=== PATIENT | male | born 1960 | race Caucasian/White ===

== ENCOUNTER 2019-08-07 18:52 | Inpatient (IN) | payer MEDICAID ==
[~2019-08-07] VITALS: Ht 180.3 cm; Wt 84.1 kg
[2019-08-07 18:52] VITALS: BP_SYST 126
--- NOTE | 2019-08-07 19:48 | NUR ---
Placed in room 5 . Placed on media monitor, blood pressure machine and pulse oximeter. To gown for exam. Side rails up.
--- NOTE | 2019-08-07 19:49 | NUR ---
Blood cultures drawn and sent to lab.
--- NOTE | 2019-08-07 19:52 | NUR ---
Patient was BIB BLS c/o body aches, cough intermittently x 2 weeks, and coughing up blood since yesterday, stating "it's dark blood." Pt denies N/V, diarrhea. Per patient, "always short of breath." No other injuries/complaints per patient or noted.
--- NOTE | 2019-08-07 19:54 | NUR ---
ER Dr. Barraza at bedside examining patient.
[2019-08-07] MEDS ORDERED: IPRATROPIUM/ALBUTEROL SULFATE 3 ML AMPUL.NEB (DUONEB) INH ONE (20:15)
[2019-08-07 20:37] LABS: BASOPHILS # (AUTO) 0.1 K/uL (0.0-0.2); BASOPHILS % (AUTO) 1.1 % (0.0-2.0); EOSINOPHILS % (AUTO) 0.1 % (0.0-4.0); HEMATOCRIT 43.1 % (36-54); HEMOGLOBIN 13.9 g/dL (14.0-18.0); LYMPHOCYTES # (AUTO) 1.2 K/uL (1.0-5.5); LYMPHOCYTES % (AUTO) 17.4 % (20.5-51.5); MEAN CORPUSCULAR HEMOGLOBIN 26 pg (27-31); MEAN CORPUSCULAR HGB CONC 32 % (32-36); MEAN CORPUSCULAR VOLUME 80 fL (79.0-98.0); MONOCYTES # (AUTO) 0.7 K/uL (0.0-1.0); MONOCYTES % (AUTO) 10.7 % (1.7-9.3); NEUTROPHILS # (AUTO) 4.9 K/uL (1.8-7.7); NEUTROPHILS % (AUTO) 70.7 % (40.0-70.0); PLATELET COUNT (AUTO) 146 K/uL (130-430); RED BLOOD CELL COUNT(AUTO) 5.41 MIL/uL (4.2-6.2); RED CELL DISTRIBUTION WIDTH 18.7 % (9.0-15.0); WHITE BLOOD COUNT (AUTO) 6.9 K/uL (4.8-10.8)
--- NOTE | 2019-08-07 20:56 | NUR ---
Received call from Lab leon Campbell. Gave troponin 0.150. MD Madi khan.
[2019-08-07 21:00] LABS: ANION GAP 4 (5-15); CALCIUM 7.6 mg/dL (8.4-11.0); CHLORIDE 100 mmol/L (98-107); CREATININE 1.36 mg/dL (0.55-1.30); GLUCOSE 94 mg/dL (70-99); POTASSIUM 3.6 mmol/L (3.5-5.1); SODIUM SERUM 128 mmol/L (136-145); UREA NITROGEN, BLOOD 34 mg/dL (8-21)
[2019-08-07 21:04] LABS: ALANINE AMINOTRANSFERASE 37 U/L (12-78); ALBUMIN 2.7 g/dL (3.4-4.8); ASPARTATE AMINOTRANSFERASE 56 U/L (10-37); LIPASE 371 U/L (73-393); TOTAL BILIRUBIN 1.5 mg/dL (0.0-1.0)
[2019-08-07 21:15] LABS: GFR AFRICAN AMERICAN 69 mL/min (>90)
[2019-08-07 21:16] LABS: ALCOHOL, BLOOD < 3 mg/dL (<10)
[2019-08-07] MEDS ORDERED: ASPIRIN 81 MG TAB.CHEW PO ONE (21:30)
[2019-08-07] MEDS ORDERED: IOHEXOL 350 mgI/mL, 150 ML INFUS..BTL IV ONE (22:19)
[2019-08-07 22:27] LABS: BILIRUBIN,URINE NEGATIVE (NEGATIVE); BLOOD, URINE 3+ (NEGATIVE); CLARITY/URINE CLEAR (CLEAR); COLOR,URINE YELLOW (YELLOW); GLUCOSE,URINE NEGATIVE (NEGATIVE); KETONES,URINE NEGATIVE (NEGATIVE); LEUKOCYTE ESTERASE ,URINE TRACE (NEGATIVE); NITRITE, URINE NEGATIVE (NEGATIVE); PROTEIN URINE 2+ (NEGATIVE)
[2019-08-07 22:31] LABS: UROBILINOGEN,URINE >=8 (0.2-1.0)
[2019-08-07 22:36] LABS: BARBITURATE, URINE NEGATIVE (NEG <=200); BENZODIAZEPINE, URINE POSITIVE (NEG <=150); METHAMPHETAMINES SCREEN,URINE POSITIVE (NEG <=500)
[2019-08-07 22:37] LABS: CANNABINOID, URINE NEGATIVE (NEG <=50); COCAINE, URINE NEGATIVE (NEG <=150); OPIATE, URINE NEGATIVE (NEG <=100); PHENCYCLIDINE SCREEN,URINE NEGATIVE (NEG <=25); UR TRICYCLIC ANTIDEPRESSANTS NEGATIVE (NEG <=300); URINE AMPHETAMINE NEGATIVE (NEG <=500); URINE METHADONE NEGATIVE (NEG <=200); URINE OXYCODONE SCREEN NEGATIVE (NEG <=100); URINE PROPOXYPHENE SCREEN NEGATIVE (NEG <=300)
[2019-08-07 22:50] LABS: BACTERIA,URINE FEW /HPF (None Seen)
[2019-08-07] MEDS ORDERED: SILD25TA PO (23:20)
[2019-08-07] MEDS ORDERED: ASA81 PO (23:20)
[2019-08-07] MEDS ORDERED: FURO-149 PO (23:20)
[2019-08-07] MEDS ORDERED: LIP40 PO (23:20)
--- NOTE | 2019-08-07 23:20 | NUR ---
Medication reconciliation completed with information provided by patient. Any prior medication reconciliation on file was reviewed and corrected.
[2019-08-07] MEDS ORDERED: DOXYCYCLINE HYCLATE 100 MG CAPSULE PO ONE (23:30)
[2019-08-08] VITALS (22 sets, daily range): BP systolic 94–129
[2019-08-08] MEDS ORDERED: MORPHINE 4 MG/ML INJ. SYRINGE IVP PRN
[2019-08-08] MEDS ORDERED: ACETAMINOPHEN 325 MG TABLET PO PRN
--- NOTE | 2019-08-08 00:51 | NUR ---
Note iman in EDM - 08/08/19 at 0123 by [email or web address] Patient will be admitted to care of Dr. Anne-Marie Ratliff. Admitted to ICU unit. Will go to room 6. Belongings list completed. Complete and up to date summary report printed. SBAR report to be given at bedside with opportunity for questions.
--- NOTE | 2019-08-08 00:51 | NUR ---
Patient will be admitted to care of Dr. Montesinos. Admitted to ICU unit. Will go to room 6. Belongings list completed. Complete and up to date summary report printed. SBAR report to be given at bedside with opportunity for questions.
--- NOTE | 2019-08-08 00:51 | NUR ---
Transfer to ICU via ACLS protocol. Licensed nurse present. IV present no signs or symptoms of infiltration.
--- NOTE | 2019-08-08 01:00 | NUR ---
ADMISSION ASSESSMENT Pt came from ER via gurney and was able to transfer from ER gurney to ICU bed 6 by sliding self. Pt connected to in room monitor. VSS with SR with bundle branch block seen on the monitor. Pt placed on 2L O2 via NC, tolerating well with O2 sats @ 96%. 18g IV noted to pt's RFA. No signs of acute distress or discomfort noted. Bed is locked and in lowest position, call light within reach, will cont to monitor pt.
[2019-08-08] MEDS: PIPERACILLIN/TAZO 3.375/DEX-IS 50 ML IV SCH ×4 (01:25→17:04)
[2019-08-08] MEDS: AZITHROMYCIN 500 MG in NS 250 ML IV SCH (01:25)
[2019-08-08] MEDS: OSELTAMIVIR PHOSPHATE 75 MG CAPSULE PO SCH ×2 (01:28→21:00)
[2019-08-08] MEDS ORDERED: PIPERACILLIN/TAZOBACTAM 3.375 GM/VIAL (ZOSYN) IV ONE (01:29)
[2019-08-08] MEDS ORDERED: AZITHROMYCIN 500 MG/VIAL (ZITHROMAX) IV ONE (01:30)
--- NOTE | 2019-08-08 01:30 | NUR ---
DR MCCORMICK NOTIFIED OF CONSULT.AND AWARE OF THE TROPONIN RESULTS.WILL SEE PT IN AM
[2019-08-08] MEDS ORDERED: OSELTAMIVIR PHOSPHATE 75 MG CAPSULE ONE (01:43)
[2019-08-08] MEDS ORDERED: FLU VACC QS2019-20 36MOS UP/PF 60 MCG/0.5 ML SYRINGE I.M. PRN (02:00)
[2019-08-08] MEDS ORDERED: guaiFENesin 200 MG/CODEINE 20 MG/ 10 ML UDC PO PRN (02:00)
--- NOTE | 2019-08-08 03:50 | NUR ---
Pt had an episode of moderate black tarry, liquid stool at this time. Pt cleaned and cesar-care performed. Pt tolerated cleaning well. Will make MD aware in AM. Will cont to monitor pt.
--- NOTE | 2019-08-08 04:30 | NUR ---
DR FLETCHER EXCHANGE NOTIFIED OF CONSULT IN AM.TALKED TO LYLE
--- NOTE | 2019-08-08 05:00 | NUR ---
Pt in bed with eyes closed resting comfortably. No signs of acute distress or discomfort noted. Bed is locked and in lowest position, call light within reach, will cont to monitor.
[2019-08-08 06:03] LABS: BASOPHILS # (AUTO) 0.2 K/uL (0.0-0.2); BASOPHILS % (AUTO) 3.7 % (0.0-2.0); EOSINOPHILS % (AUTO) 0.3 % (0.0-4.0); HEMATOCRIT 38.9 % (36-54); HEMOGLOBIN 12.5 g/dL (14.0-18.0); LYMPHOCYTES # (AUTO) 0.8 K/uL (1.0-5.5); LYMPHOCYTES % (AUTO) 13.3 % (20.5-51.5); MEAN CORPUSCULAR HEMOGLOBIN 26 pg (27-31); MEAN CORPUSCULAR HGB CONC 32 % (32-36); MEAN CORPUSCULAR VOLUME 80 fL (79.0-98.0); MONOCYTES # (AUTO) 0.6 K/uL (0.0-1.0); NEUTROPHILS # (AUTO) 4.2 K/uL (1.8-7.7); NEUTROPHILS % (AUTO) 71.7 % (40.0-70.0); PLATELET COUNT (AUTO) 132 K/uL (130-430); RED BLOOD CELL COUNT(AUTO) 4.87 MIL/uL (4.2-6.2); RED CELL DISTRIBUTION WIDTH 19.5 % (9.0-15.0); WHITE BLOOD COUNT (AUTO) 5.8 K/uL (4.8-10.8)
[2019-08-08 06:20] LABS: ALBUMIN 2.3 g/dL (3.4-4.8); CALCIUM 7.4 mg/dL (8.4-11.0); CREATININE 1.23 mg/dL (0.55-1.30); POTASSIUM 3.9 mmol/L (3.5-5.1); TOTAL BILIRUBIN 1.2 mg/dL (0.0-1.0)
--- NOTE | 2019-08-08 07:23 | NUR ---
ENDORSEMENT Report given to oncoming dayshift RN using SBAR format and pt care was endorsed. No signs of acute distress or discomfort noted.
[2019-08-08] MEDS ORDERED: OCTREOTIDE ACETATE 500 MCG in NS 247.5 ML IV SCH (08:30)
[2019-08-08] MEDS ORDERED: OCTREOTIDE ACETATE 50 MCG in NS 50 ML IV ONE (08:30)
[2019-08-08] MEDS ORDERED: PANTOPRAZOLE SODIUM 40 MG/VIAL (PROTONIX) IVP SCH (09:00)
[2019-08-08 09:34] LABS: INR 1.2 (0.80-1.20); PROTHROMBIN TIME 12.3 SECS (9.5-12.5)
[2019-08-08] MEDS: ONDANSETRON HCL 4 MG/2 ML VIAL IVP PRN ×2 (10:05→14:08)
[2019-08-08] MEDS: PANTOPRAZOLE SODIUM 40 MG in NS 50 ML IV SCH ×4 (10:21→23:31)
--- NOTE | 2019-08-08 10:23 | NUR ---
Nutrition Update Jim Scale 18 noted. Pt admitted for NSTEMI and pneumonitis. Diet: clear liquid and NPO (2 active, separate diet orders) BMI: 25.8 kg/m2 RD to follow per nutrition care standards.
--- NOTE | 2019-08-08 10:25 | NUR ---
Paged Dr. Patrick regarding pt condition. Spoke with exchange.
--- NOTE | 2019-08-08 10:58 | NUR ---
Paged Dr. Montesinos for orders. Spoke with exchange.
[2019-08-08] MEDS: OCTREOTIDE ACETATE 500 MCG in NS 247.5 ML IV SCH ×2 (10:59→20:44)
--- NOTE | 2019-08-08 12:35 | NUR ---
Discharge Plan/ICU Assessment done. TELECOM ANALYST met with patient at bedside. Patient was experiencing pain and thirst but agreed to the interview. He is alert and oriented. He lives at home with his roommate, Aneudy Mckenna [phone]. Patient agreed to have Aneudy added as the person to notify on the face sheet. He cannot remember Anisha's phone number and agreed to have TELECOM ANALYST call Aneudy for the number. Called and left a voicemail message. Patient stated he has no family but has friends who would assist him if needed. He drives (car is in the hospital parking lot). Stated he is independent with ADLs but gets sob and uses his O2 "fairly often" at home. He has never been to a SNF nor had home health. Patient plans to return home with no discharge planning needs upon discharge. Patient also stated he is fine and has no C.O.D. Audit Clerk needs. Provided patient my card. C.O.D. Audit Clerk/Case Management/Cold Roll Packer Sheet Iron will be available if needed.
--- NOTE | 2019-08-08 13:23 | NUR ---
SPOKE TO DR SINGLETON OF GASTOENTERLOGY. INFORMED HIM OF BLACKISH VOMIT AND BLACK TO BURGANDY STOOL. HE ALSO GAVE ME ORDERS. SEE ORDERS. OF COURSE I CLEANED THE PT.
[2019-08-08] MEDS ORDERED: METOCLOPRAMIDE HCL 10 MG/2 ML VIAL IVP ONE (13:30)
--- NOTE | 2019-08-08 14:00 | NUR ---
DR FLETCHER HERE TO SEE THE PT. SHE WROTE ORDERS-MEDS. SEE EMAR. THE PT IS SLEEPING FOR THE MOST PART. I DID GIVE HIM THADDEUS AND CAMERON.
[2019-08-08] MEDS: D5/0.45 NS 1,000 ML IV SCH ×2 (14:19→23:30)
[2019-08-08 14:21] LABS: BASOPHILS % (AUTO) 0.7 % (0.0-2.0); EOSINOPHILS % (AUTO) 0.2 % (0.0-4.0); HEMATOCRIT 37.8 % (36-54); LYMPHOCYTES # (AUTO) 1.4 K/uL (1.0-5.5); LYMPHOCYTES % (AUTO) 20.6 % (20.5-51.5); MEAN CORPUSCULAR HEMOGLOBIN 25 pg (27-31); MEAN CORPUSCULAR HGB CONC 32 % (32-36); MEAN CORPUSCULAR VOLUME 80 fL (79.0-98.0); MONOCYTES # (AUTO) 0.6 K/uL (0.0-1.0); MONOCYTES % (AUTO) 8.3 % (1.7-9.3); NEUTROPHILS # (AUTO) 4.7 K/uL (1.8-7.7); NEUTROPHILS % (AUTO) 70.2 % (40.0-70.0); PLATELET COUNT (AUTO) 136 K/uL (130-430); RED BLOOD CELL COUNT(AUTO) 4.71 MIL/uL (4.2-6.2); RED CELL DISTRIBUTION WIDTH 19.2 % (9.0-15.0); WHITE BLOOD COUNT (AUTO) 6.7 K/uL (4.8-10.8)
[2019-08-08] MEDS ORDERED: IPRATROPIUM BROM 0.5 MG/2.5 ML VIAL.NEB (ATROVENT) INH PRN (15:30)
[2019-08-08] MEDS ORDERED: ALBUTEROL SULFATE 0.083% 2.5 MG/3 ML VIAL.NEB INH PRN ×2 (15:30)
[2019-08-08] MEDS ORDERED: methylPREDNISolone SOD SUCC/PF 62.5 MG/ML VIAL IVP ONE (15:30)
--- NOTE | 2019-08-08 18:00 | NUR ---
THE PT DID HAVE THREE BURGANDY STOOLS. HE IS SCHEDULED FOR AN EGD TOMMORROW. SANDOSTATIN AND PROTONIX A RUNNING WELL IVF. THE PT IS TRY TO SLEEP THROUGH. HE DOES HOWEVER AWAKEN FOR URINATION IN THE URINAL.
--- NOTE | 2019-08-08 19:55 | NUR ---
Initial PM note Received patient after report from electric motor and generator assembler. Easy to arouse but reporting feeling tired and "I just want to go to sleep; I haven't slept for three days". Denies pain or discomfort at this time and no signs of hemoptysis. IV infusing as per MD orders and IV drips Sandostatin and Protonix infusing as per orders; no signs of infiltration noted at this time. Low O2 sats noted 87%, encouraged to take deep breaths amd O2 was increased to 5 L/min via nasal canula. Patient was noted to be mouth breather when sleeping. will continue to monitor O2 sats.
[2019-08-08 20:24] LABS: BASOPHILS # (AUTO) 0.1 K/uL (0.0-0.2); BASOPHILS % (AUTO) 0.7 % (0.0-2.0); EOSINOPHILS % (AUTO) 0.1 % (0.0-4.0); HEMATOCRIT 38.3 % (36-54); HEMOGLOBIN 12.2 g/dL (14.0-18.0); LYMPHOCYTES # (AUTO) 0.5 K/uL (1.0-5.5); LYMPHOCYTES % (AUTO) 5.4 % (20.5-51.5); MEAN CORPUSCULAR HEMOGLOBIN 25 pg (27-31); MEAN CORPUSCULAR HGB CONC 32 % (32-36); MEAN CORPUSCULAR VOLUME 80 fL (79.0-98.0); MONOCYTES # (AUTO) 0.2 K/uL (0.0-1.0); MONOCYTES % (AUTO) 2.2 % (1.7-9.3); NEUTROPHILS # (AUTO) 7.9 K/uL (1.8-7.7); NEUTROPHILS % (AUTO) 91.6 % (40.0-70.0); PLATELET COUNT (AUTO) 146 K/uL (130-430); RED BLOOD CELL COUNT(AUTO) 4.79 MIL/uL (4.2-6.2); WHITE BLOOD COUNT (AUTO) 8.6 K/uL (4.8-10.8)
[2019-08-08] MEDS: ALBUTEROL SULFATE 0.083% 2.5 MG/3 ML VIAL.NEB INH SCH (20:31)
[2019-08-08] MEDS: IPRATROPIUM BROM 0.5 MG/2.5 ML VIAL.NEB (ATROVENT) INH SCH (20:32)
[2019-08-08] MEDS ORDERED: methylPREDNISolone SOD SUCC 40 MG/ML VIAL ONE (20:50)
[2019-08-08] MEDS: SILDENAFIL CITRATE 20 MG TABLET PO SCH (21:00)
--- NOTE | 2019-08-08 21:10 | NUR ---
spoke to patient sister Ivette Kelly after patient consented to share information. information provided as requested.
[2019-08-08] MEDS: methylPREDNISolone SOD SUCC/PF 62.5 MG/ML VIAL IVP SCH (23:43)
[2019-08-09] VITALS (18 sets, daily range): BP systolic 99–134
[2019-08-09] MEDS: PIPERACILLIN/TAZO 3.375/DEX-IS 50 ML IV SCH ×5 (00:17→23:15)
[2019-08-09] MEDS: ALBUTEROL SULFATE 0.083% 2.5 MG/3 ML VIAL.NEB INH SCH ×4 (01:00→19:00)
[2019-08-09] MEDS: IPRATROPIUM BROM 0.5 MG/2.5 ML VIAL.NEB (ATROVENT) INH SCH ×4 (01:00→19:00)
[2019-08-09] MEDS: AZITHROMYCIN 500 MG in NS 250 ML IV SCH ×2 (01:31→23:15)
[2019-08-09] MEDS: PANTOPRAZOLE SODIUM 40 MG in NS 50 ML IV SCH ×4 (04:14→20:27)
[2019-08-09] MEDS: methylPREDNISolone SOD SUCC/PF 62.5 MG/ML VIAL IVP SCH (06:05)
--- NOTE | 2019-08-09 06:20 | NUR ---
As per Leigh from GI lab, Patient's EGD will have place at patient's room around 0800 as patient is the third case this morning.
[2019-08-09 06:41] LABS: INR 1.2 (0.80-1.20); PROTHROMBIN TIME 11.7 SECS (9.5-12.5)
--- NOTE | 2019-08-09 06:54 | NUR ---
Patient is easy to arouse but continues to be very sleepy. No signs of respiratory distress noted or reported and no episode of emesis noted. GI lab personnel bringing equipment to room. will continue to monitor.
[2019-08-09 07:10] LABS: ALBUMIN 2.2 g/dL (3.4-4.8); CALCIUM 7.4 mg/dL (8.4-11.0); CREATININE 1.3 mg/dL (0.55-1.30); POTASSIUM 4.6 mmol/L (3.5-5.1); THYROID STIMULATING HORMONE 0.36 uIu/mL (0.36-3.74); TOTAL BILIRUBIN 1.2 mg/dL (0.0-1.0)
[2019-08-09] MEDS ORDERED: MIDAZOLAM HCL 5 MG/5 ML VIAL ONE ×2 (07:48)
[2019-08-09] MEDS ORDERED: fentaNYL CITRATE/PF 100 MCG/2 ML AMP ONE (07:49)
[2019-08-09] MEDS ORDERED: SIMETHICONE 40 MG/0.6 ML ML ONE (07:49)
[2019-08-09] MEDS: D5/0.45 NS 1,000 ML IV SCH ×2 (09:30→20:28)
--- NOTE | 2019-08-09 12:00 | NUR ---
THE PT DID HAVE HIS EGD THIS AM AND WAS RESTING COMFORTABLY FROM THE SEDATION. HE NOW AWOKE TO URINATE AND LATER ASKED FOR SOMETHING TO DRINK. THIS IS AN IMPROVEMENT THE PT WAS VERY NAUSEATED YESTERDAY. THE EGD SHOWED NO ACTIVE BLEED AT THIS TIME. , BUT DID SHOW ESOPHAGITIS. VS REMAIN STABLE. PT HAS NO C/O.
[2019-08-09] MEDS: SILDENAFIL CITRATE 20 MG TABLET PO SCH ×3 (12:40→20:28)
[2019-08-09] MEDS: OSELTAMIVIR PHOSPHATE 75 MG CAPSULE PO SCH ×2 (12:40→20:28)
[2019-08-09] MEDS: methylPREDNISolone SOD SUCC 40 MG/ML VIAL IVP SCH (18:23)
[2019-08-09] MEDS: MORPHINE 2 MG/ML INJ. SYRINGE IVP PRN ×2 (18:35→23:08)
--- NOTE | 2019-08-09 20:06 | NUR ---
Initial PM note Received patient after report from day nurse [facility]. Patient AAO x4, c/o "lack of sleep, and I want to sleep". Requesting "some more of that morphine I got earlier". Patient received Morphine 2 mg at 1835 and will be due for next PRN dose at 2235. Patient was informed and agreed to wait until then. S/P EGD this AM and no episodes of hemoptysis or bloody stools. Orders for patient to be transferred to telemetry unit; waiting for bed assignment. will continue to monitor as per unit protocol.
[2019-08-09 20:20] LABS: BASOPHILS % (AUTO) 0.2 % (0.0-2.0); HEMATOCRIT 35.5 % (36-54); HEMOGLOBIN 11.2 g/dL (14.0-18.0); LYMPHOCYTES # (AUTO) 0.5 K/uL (1.0-5.5); LYMPHOCYTES % (AUTO) 4.9 % (20.5-51.5); MEAN CORPUSCULAR HEMOGLOBIN 26 pg (27-31); MEAN CORPUSCULAR HGB CONC 32 % (32-36); MEAN CORPUSCULAR VOLUME 81 fL (79.0-98.0); MONOCYTES # (AUTO) 0.3 K/uL (0.0-1.0); MONOCYTES % (AUTO) 2.9 % (1.7-9.3); NEUTROPHILS # (AUTO) 9.5 K/uL (1.8-7.7); PLATELET COUNT (AUTO) 149 K/uL (130-430); RED BLOOD CELL COUNT(AUTO) 4.39 MIL/uL (4.2-6.2); RED CELL DISTRIBUTION WIDTH 19.3 % (9.0-15.0); WHITE BLOOD COUNT (AUTO) 10.3 K/uL (4.8-10.8)
--- NOTE | 2019-08-09 22:45 | NUR ---
Transfer to Telemetry 123B Patient was transferred to telemetry unit. potline monitor and oxygen in place during transfer. Patient tolerated well. Report given and care endorsed to Candi MCKINNEY.
--- NOTE | 2019-08-09 23:00 | NUR ---
RECEIVED PT TRANSFERRED FROM ICU TO ROOM SETTLED IN AND MADE COMFORTABLE IV RFA WITH FLUIDS INFUSING WELL PO FLUIDS GIVEN CAMRYN WELL ,PT ON DROPLET PRECAUTION FOR THE FLU .VOIDING WELL MEDICATED FOR PAIN WITH GOOD EFFECT.
[2019-08-10] MEDS: PANTOPRAZOLE SODIUM 40 MG in NS 50 ML IV SCH ×3 (01:00→11:00)
[2019-08-10] MEDS: IPRATROPIUM BROM 0.5 MG/2.5 ML VIAL.NEB (ATROVENT) INH SCH ×3 (01:00→13:20)
[2019-08-10] MEDS: ALBUTEROL SULFATE 0.083% 2.5 MG/3 ML VIAL.NEB INH SCH ×3 (01:00→13:20)
--- NOTE | 2019-08-10 02:42 | NUR ---
Colton Peoples s/w Dacia.
--- NOTE | 2019-08-10 02:45 | NUR ---
PAGED : DR GRIMES PAGED TO NOTIFY THE C/O PAIN TO HIS LEFT ABDOMEN , PT STATED HE HAS KIDNEY STONE . PT RECEIVED PAIN MEDICATION 3 HRS AGO AND C/O SEVERE PAIN , PAIN MEDICATION IS NOT DUE YET .
[2019-08-10] MEDS ORDERED: MORPHINE 2 MG/ML INJ. SYRINGE IVP ONE (03:30)
[2019-08-10 04:00] VITALS: BP_SYST 120
--- NOTE | 2019-08-10 04:00 | NUR ---
PT MEDICATED FOR PAIN V/S STABLE REPOSITIONED MADE COMFORTABLE,NO DISTRESS NOTED AT THIS TIME
[2019-08-10] MEDS: PIPERACILLIN/TAZO 3.375/DEX-IS 50 ML IV SCH ×4 (05:12→21:29)
[2019-08-10] MEDS: methylPREDNISolone SOD SUCC 40 MG/ML VIAL IVP SCH (06:28)
[2019-08-10 06:58] LABS: BASOPHILS % (AUTO) 0.3 % (0.0-2.0); HEMOGLOBIN 10.6 g/dL (14.0-18.0); LYMPHOCYTES # (AUTO) 0.6 K/uL (1.0-5.5); LYMPHOCYTES % (AUTO) 4.6 % (20.5-51.5); MEAN CORPUSCULAR HEMOGLOBIN 26 pg (27-31); MEAN CORPUSCULAR HGB CONC 32 % (32-36); MEAN CORPUSCULAR VOLUME 81 fL (79.0-98.0); MONOCYTES # (AUTO) 0.4 K/uL (0.0-1.0); MONOCYTES % (AUTO) 3.3 % (1.7-9.3); NEUTROPHILS # (AUTO) 11.4 K/uL (1.8-7.7); NEUTROPHILS % (AUTO) 91.8 % (40.0-70.0); PLATELET COUNT (AUTO) 143 K/uL (130-430); RED BLOOD CELL COUNT(AUTO) 4.09 MIL/uL (4.2-6.2); RED CELL DISTRIBUTION WIDTH 19.1 % (9.0-15.0); WHITE BLOOD COUNT (AUTO) 12.4 K/uL (4.8-10.8)
[2019-08-10 07:06] LABS: CALCIUM 7.3 mg/dL (8.4-11.0); CREATININE 1.26 mg/dL (0.55-1.30); POTASSIUM 4.5 mmol/L (3.5-5.1)
[2019-08-10 08:02] VITALS: BP_SYST 120
--- NOTE | 2019-08-10 08:02 | NUR ---
INITIAL ROUNDS Received pt AAOx4, received pt with no s/s resp distress, no cough noted, c/o pain and pointed to his right abd, then pt stated that the pain medication doesn't work and that he doesn't want anything right now.Pt declined to let this ad writer assess his abd at all-pt told me "I'm fine, let me rest". Pt on Airborne precautions for Influenza A+. Plan of care for the day reviewed with pt-pt verbalized his understanding. Pain management, isolation precautions, skin and safety discussed-teach back done. Call light within reach.
--- NOTE | 2019-08-10 09:37 | NUR ---
OKAY TO DISCUSS WITH DAUGHTER Pt stated it is okay to update his daughter Eladio Ortiz with his plan of care.
[2019-08-10] MEDS: SILDENAFIL CITRATE 20 MG TABLET PO SCH ×3 (10:04→20:34)
[2019-08-10] MEDS: OSELTAMIVIR PHOSPHATE 75 MG CAPSULE PO SCH ×2 (10:04→20:34)
[2019-08-10] MEDS: D5/0.45 NS 1,000 ML IV SCH (10:04)
--- NOTE | 2019-08-10 10:33 | NUR ---
ROUNDS/ Pt resting quietly in bed with no s/s resp distress, no cough noted, c/o body aches-will check on pain medication. Pt seen by Dr. Pinto, new orders noted, order for Motrin given. All precautions remain in place. Needs met, call light within reach.
[2019-08-10] MEDS: IBUPROFEN 600 MG TABLET PO PRN ×2 (12:06→22:05)
[2019-08-10 13:05] VITALS: BP_SYST 96
--- NOTE | 2019-08-10 14:06 | NUR ---
ROUNDS Pt resting quietly in bed with no s/s resp distress, no c/o pain or discomfort. Pt seen by Dr. Patrick and Dr. Bustillo, new orders noted. All precautions remain in place. Call light within reach.
[2019-08-10 17:20] VITALS: BP_SYST 100
[2019-08-10 19:00] VITALS: BP_SYST 145
[2019-08-10 20:00] VITALS: BP_SYST 110
--- NOTE | 2019-08-10 20:00 | NUR ---
RECEIVED PT IN BED WITH FRIENDS AT BEDSIDE V/S AND ASSESSMENT DONE SHANTANU RSTABLE
[2019-08-10] MEDS: PANTOPRAZOLE SODIUM 40 MG TAB PO SCH (20:34)
[2019-08-11] VITALS: BP_SYST 115
--- NOTE | 2019-08-11 | NUR ---
pt resting meds given for margoth with good effect
[2019-08-11 04:00] VITALS: BP_SYST 118
--- NOTE | 2019-08-11 04:00 | NUR ---
pt sleeping at this time
[2019-08-11] MEDS: IBUPROFEN 600 MG TABLET PO PRN ×2 (05:24→15:13)
[2019-08-11] MEDS: PIPERACILLIN/TAZO 3.375/DEX-IS 50 ML IV SCH ×3 (05:24→18:52)
[2019-08-11 07:55] VITALS: BP_SYST 100
--- NOTE | 2019-08-11 07:55 | NUR ---
INITIAL ROUNDS Received pt AAOx4, received pt with no s/s resp distress, no cough noted, c/o 6/10 pain and pointed to his low abd, will check on pt's pain medication. Pt on Airborne precautions for Influenza A+. Plan of care for the day reviewed with pt-pt verbalized his understanding. Pain management, isolation precautions, skin and safety discussed-teach back done. Call light within reach.
[2019-08-11] MEDS: ALBUTEROL SULFATE 0.083% 2.5 MG/3 ML VIAL.NEB INH SCH ×3 (08:03→20:24)
[2019-08-11] MEDS: IPRATROPIUM BROM 0.5 MG/2.5 ML VIAL.NEB (ATROVENT) INH SCH ×3 (08:03→20:23)
[2019-08-11] MEDS: MORPHINE 2 MG/ML INJ. SYRINGE IVP PRN ×4 (08:45→21:23)
[2019-08-11] MEDS: SILDENAFIL CITRATE 20 MG TABLET PO SCH ×3 (08:45→21:05)
[2019-08-11] MEDS: OSELTAMIVIR PHOSPHATE 75 MG CAPSULE PO SCH ×2 (08:45→21:06)
[2019-08-11] MEDS: PANTOPRAZOLE SODIUM 40 MG TAB PO SCH ×2 (08:46→21:06)
[2019-08-11] MEDS ORDERED: PREDNISONE 20 MG TABLET PO SCH ×2 (09:00)
[2019-08-11 10:04] LABS: BASOPHILS % (AUTO) 0.3 % (0.0-2.0); HEMATOCRIT 31.9 % (36-54); HEMOGLOBIN 10.1 g/dL (14.0-18.0); LYMPHOCYTES # (AUTO) 0.8 K/uL (1.0-5.5); LYMPHOCYTES % (AUTO) 6.3 % (20.5-51.5); MEAN CORPUSCULAR HEMOGLOBIN 25 pg (27-31); MEAN CORPUSCULAR HGB CONC 32 % (32-36); MEAN CORPUSCULAR VOLUME 80 fL (79.0-98.0); MONOCYTES # (AUTO) 0.7 K/uL (0.0-1.0); NEUTROPHILS # (AUTO) 11.5 K/uL (1.8-7.7); NEUTROPHILS % (AUTO) 88.4 % (40.0-70.0); PLATELET COUNT (AUTO) 153 K/uL (130-430); RED BLOOD CELL COUNT(AUTO) 3.97 MIL/uL (4.2-6.2); RED CELL DISTRIBUTION WIDTH 19.4 % (9.0-15.0); WHITE BLOOD COUNT (AUTO) 13.1 K/uL (4.8-10.8)
[2019-08-11 10:45] LABS: ALBUMIN 2.3 g/dL (3.4-4.8); CALCIUM 7.8 mg/dL (8.4-11.0); CREATININE 1.23 mg/dL (0.55-1.30); POTASSIUM 4.2 mmol/L (3.5-5.1)
--- NOTE | 2019-08-11 10:55 | NUR ---
Case Management Spoke with Meredith reinoso [phone] f [phone]. Faxed requested 24 hour report.
--- NOTE | 2019-08-11 11:48 | NUR ---
ROUNDS Pt resting quietly in bed with no s/s resp distress, no c/o pain or discomfort. No changes, call light within reach.
--- NOTE | 2019-08-11 13:45 | NUR ---
PT UPSET Pt seen by Physical Therapist and got really upset that he was asked to ambulate for a P.T. evaluation. Pt shouting and cussing at staff, stating he just wants to be left alone. Pt stated he wanted to leave now, able to calm pt down and pt stated he will try to rest now. Light turned and door closed to promote rest. Call light within reach.
[2019-08-11 16:15] VITALS: BP_SYST 110
--- NOTE | 2019-08-11 18:18 | NUR ---
CLOSING NOTE Pt resting quietly in bed with no s/s resp distress, no c/o pain or discomfort. Pt given fresh ice water per request. Pt encouraged to eat >50% of each meal-pt stated he would try to eat more-pt wants to try a soft diet for breakfast. Droplet isolation precautions maintained throughout shift. Call light within reach.
[2019-08-11 20:00] VITALS: BP_SYST 94
[2019-08-12] MEDS: PIPERACILLIN/TAZO 3.375/DEX-IS 50 ML IV SCH ×2 (00:11→06:53)
[2019-08-12] MEDS: IPRATROPIUM BROM 0.5 MG/2.5 ML VIAL.NEB (ATROVENT) INH SCH ×2 (01:00→07:00)
[2019-08-12] MEDS: ALBUTEROL SULFATE 0.083% 2.5 MG/3 ML VIAL.NEB INH SCH ×2 (01:00→07:00)
[2019-08-12 02:34] VITALS: BP_SYST 94
[2019-08-12 07:02] LABS: BASOPHILS % (AUTO) 0.2 % (0.0-2.0); HEMATOCRIT 31.4 % (36-54); LYMPHOCYTES # (AUTO) 1.2 K/uL (1.0-5.5); LYMPHOCYTES % (AUTO) 10.6 % (20.5-51.5); MEAN CORPUSCULAR HEMOGLOBIN 25 pg (27-31); MEAN CORPUSCULAR HGB CONC 32 % (32-36); MEAN CORPUSCULAR VOLUME 80 fL (79.0-98.0); MONOCYTES % (AUTO) 8.7 % (1.7-9.3); NEUTROPHILS # (AUTO) 9.1 K/uL (1.8-7.7); NEUTROPHILS % (AUTO) 80.5 % (40.0-70.0); PLATELET COUNT (AUTO) 173 K/uL (130-430); RED BLOOD CELL COUNT(AUTO) 3.94 MIL/uL (4.2-6.2); WHITE BLOOD COUNT (AUTO) 11.4 K/uL (4.8-10.8)
--- NOTE | 2019-08-12 07:13 | NUR ---
Pt was sleeping at 08/12/2019 didn't want to be woke up for V/S. Addendum: 08/12/19 at 0722 by Aubrie Hopkins RN Amended: Links added.
[2019-08-12 07:17] LABS: ALBUMIN 2.3 g/dL (3.4-4.8); CALCIUM 7.9 mg/dL (8.4-11.0); CREATININE 1.32 mg/dL (0.55-1.30); POTASSIUM 4.6 mmol/L (3.5-5.1); TOTAL BILIRUBIN 1.3 mg/dL (0.0-1.0)
[2019-08-12] MEDS ORDERED: PRO40 PO (10:32)
[2019-08-12] MEDS ORDERED: PRED20TA PO (10:32)
[2019-08-12 11:06] VITALS: BP_SYST 122
[2019-08-12 11:46] VITALS: BP_SYST 122
--- NOTE | 2019-08-12 12:10 | NUR ---
closing notes pt was discharged after seen by dr borrero. pt is upset but apologizing for his action. at first he wants to sign ama then changed his mind. refused the flu shot and stated will have it somewhere else when offered prior to d/c. ivl and id band was removed. no sob noted. instructed re appt to primary. was wheeled outside via wheelchair.
--- NOTE | 2019-08-12 13:37 | NUR ---
social welfare research worker: met with pt briefly to address substance abuse and positive lab for amphet. PARTS SALVAGER shared with pt. info he tested positive for drugs. Pt. at first denied it and look shocked. When PARTS SALVAGER shared with him that the labs came back positive and she would like to provide him with some resources, pt. said he last used about 10 days ago. He took resources and stated he was leaving. Pt did not want to talk to his Rn. He thanked PARTS SALVAGER who will remain available as needed. PARTS SALVAGER confirmed this with his Rn, Ingrid.
== END 2019-08-12 12:05 | disposition home or self-care (01) | DRG 253 ==
LOC: SED 18:52 → SIC 23:41 → STU 08-09 23:01 → SMU 08-11 09:39
PROVIDERS: ADMIT Internal Medicine Hospice and Palliative Medicine; ATTEND Internal Medicine Hospice and Palliative Medicine
PROC: 0DJ08ZZ Inspection of Upper Intestinal Tract, Via Natural or Artificial Opening Endoscopic (ICD-10-PCS; principal; 2019-08-09 09:00)
DX: K92.2 Gastrointestinal hemorrhage, unspecified (principal); I21.A1 Myocardial infarction type 2; J96.20 Acute and chronic respiratory failure, unspecified whether with hypoxia or hypercapnia; J18.9 Pneumonia, unspecified organism; I27.20 Pulmonary hypertension, unspecified; I50.810 Right heart failure, unspecified; I31.3 Pericardial effusion (noninflammatory); K20.9 Esophagitis, unspecified; J44.1 Chronic obstructive pulmonary disease with (acute) exacerbation; B19.20 Unspecified viral hepatitis C without hepatic coma; E78.5 Hyperlipidemia, unspecified; F17.210 Nicotine dependence, cigarettes, uncomplicated; J10.1 Influenza due to other identified influenza virus with other respiratory manifestations; K44.9 Diaphragmatic hernia without obstruction or gangrene; J98.11 Atelectasis; K74.60 Unspecified cirrhosis of liver; N13.30 Unspecified hydronephrosis; G89.4 Chronic pain syndrome; Z99.81 Dependence on supplemental oxygen; Z82.49 Family history of ischemic heart disease and other diseases of the circulatory system; Z79.82 Long term (current) use of aspirin; Z79.899 Other long term (current) drug therapy
CPT/HCPCS: 36415; 36600; 43235; 71045; 71275; 76700-TC; 80048; 80053; 80061; 80307; 81000-TC; 82803-TC; 83605; 83690-TC; 83880; 84443-TC; 84484; 85025; 85379; 85610-TC; 86480; 86710; 86886; 86900; 86901; 87040-TC; 87081; 87086; 93005; 93306; 93971; 94640; 94760; 97161-GP; 99285; C9113; G0378; G0482; G9035; J0456; J1030; J2250; J2270; J2354; J2405; J2543; J2765; J2930; J3010; J7050; J7060; J7512; J7613; J7620; Q9967